=== PATIENT | female | born 1990 | race Hispanic/Latino ===

== ENCOUNTER 2017-10-23 15:30 | Emergency (ER) | payer OTHER ==
[2017-10-23 15:39] VITALS: BP 153/73; PULSE 84; RESP 18; TEMP 97; O2SAT 98
[2017-10-23] MEDS ORDERED: Lidocaine 1% Inj (20ml) ONE (15:45)
--- NOTE | 2017-10-23 16:02 | ED PDOC ---
Upper Extremity Pain/Injury Time Seen by Provider: 10/23/17 15:57 Chief Complaint (Nursing): Upper Extremity Problem/Injury Chief Complaint (Provider): Upper Extremity Problem/Injury History Per: Patient History/Exam Limitations: no limitations Onset/Duration Of Symptoms: Other (prior to arrival) Current Symptoms Are (Timing): Still Present Additional Complaint(s): Shweta is a 27 year old female who presents to the emergency department with a cut on her left-index finger, onset [id number] with a knife. Patient does not know last tetanus shot. PMD: No Family Provider Past Medical History Reviewed: Historical Data, Nursing Documentation, Vital Signs Vital Signs: Last Vital Signs Temp 97 F L 10/23/17 15:36 Pulse 84 10/23/17 15:36 Resp 18 10/23/17 15:36 BP 153/73 H 10/23/17 15:36 Pulse Ox 98 10/23/17 15:36 - Medical History PMH: No Chronic Diseases - Surgical History Surgical History: No Surg Hx - Family History Family History: States: No Known Family Hx - Allergies Allergies/Adverse Reactions: Allergies Allergy/AdvReac Type Severity Reaction Status Date / Time No Known Allergies Allergy Verified 10/23/17 15:36 Physical Exam - Reviewed Nursing Documentation Reviewed: Yes Vital Signs Reviewed: Yes - Physical Exam Appears: Positive for: Well, Non-toxic, No Acute Distress Head Exam: Positive for: ATRAUMATIC, NORMAL INSPECTION, NORMOCEPHALIC Skin: Positive for: Warm. Negative for: Normal Color (1 cm superficial laceration) Eye Exam: Positive for: Normal appearance ENT: Positive for: Normal ENT Inspection Neck: Positive for: Normal Respiratory: Negative for: Accessory Muscle Use, Respiratory Distress Back: Positive for: Normal Inspection Extremity: Positive for: Normal ROM Neurologic/Psych: Positive for: Alert, Oriented - ECG O2 Sat by Pulse Oximetry: 98 (RA) Pulse Ox Interpretation: Normal Medical Decision Making Medical Decision Making: Time: 16:21 - Adacel 0.5 ml IM Scribe Attestation: Documented by Alan Gibson, acting as a scribe for Marylin Traore PA-C Provider Scribe Attestation: All medical record entries made by the Scribe were at my direction and personally dictated by me. I have reviewed the chart and agree that the record accurately reflects my personal performance of the history, physical exam, medical decision making, and the department course for this patient. I have also personally directed, reviewed, and agree with the discharge instructions and disposition. Disposition - Clinical Impression Clinical Impression: Finger laceration, Tetanus toxoid vaccination administered at current visit - Patient ED Disposition Is Patient to be Admitted: No Counseled Patient/Family Regarding: Diagnosis, Need For Followup - Disposition Disposition: Routine/Home Disposition Time: 17:32 Condition: GOOD Instructions: Laceration Without Closure (ED) Forms: [place] (Malay)
== END 2017-10-23 17:43 | disposition home or self-care (01) ==
LOC: H.ER 15:30
DX: S61.201A Unspecified open wound of left index finger without damage to nail, initial encounter (principal); W26.0XXA Contact with knife, initial encounter; Y92.89 Other specified places as the place of occurrence of the external cause